=== PATIENT | female | born 1950 | race Caucasian/White ===

== ENCOUNTER 2017-10-25 18:41 | Emergency (ER) | payer OTHER, MEDICARE ==
[~2017-10-25 18:41] MED LIST: ACYCLOVIR800 MG PO; ARTIFICIAL TEAR15 M2 OS; ATORVASTATIN CA10 M1 PO; CARDIZEM CD240 M1 PO; CARTIA XT120 M1 PO; ENDOCET 10-3251 EACH PO; ENDOCET 325 MG-1 TA1 PO; HYDROCODONE/ACE1 TA1 PO; LAMOTRIGINE25 M3 PO; LOSARTAN-HCTZ1 EAC1 PO; MULTI-DAY PLUS1 EAC1 PO; NEURONTIN300 MG PO; NEURONTIN800 M2 PO; PANTOPRAZOLE SO40 M1 PO; PERCOCET 325 MG1 TAB PO; PRADAXA150 M1 PO; PREDNISONE20 M1 PO; PREMARIN0.9 M1 PO; TIROSINT100 MC1 PO; VALTREX1 GM PO; VALTREX1000 MG PO; VITAMIN B-122000 MC1 PO; ZOVIRAX800 MG PO
[2017-10-25] MEDS ORDERED: FLOVENT HFA12 G1 INH (19:19)
[2017-10-25 19:40] VITALS: BP 125/60
[2017-10-25] MEDS ORDERED: PREDNISONE20 M1 PO (19:56)
[2017-10-25] MEDS ORDERED: ULTRAM50 M1 PO (19:56)
[2017-10-25] MEDS ORDERED: VALTREX1000 MG PO (19:56)
--- NOTE | 2017-10-25 19:57 | ED SKIN/ALLERGY COMPLAINT ---
History of Present Illness General Chief Complaint: General Adult Stated Complaint: R SIDED FACIAL DROOP Source: patient, old records Exam Limitations: no limitations Vital Signs & Intake/Output Vital Signs & Intake/Output Vital Signs Date Time Temp Pulse Resp B/P B/P Pulse O2 O2 Flow FiO2 Mean Ox Delivery Rate 10/26 1939 98.2 70 20 125/60 96 Room Air Allergies Coded Allergies: Iodinated Contrast- Oral and IV Dye (ANAPHYLAXIS 11/16/16) aspartame (MIGRAINES 11/16/16) gold Au 198 (BLISTERS, BODY REJECTS ANY IMPLANTS 11/16/16) nickel (BLISTER ON CONTACT, BODY REJECTS ANY IMPLANT 11/16/16) tetracycline (RASH 11/16/16) Uncoded Allergies: METAL (ON SKIN RASH, AND BODY REJECTED SURGICAL STAINLESS STEEL 11/16/16) Reconcile Medications Atorvastatin Calcium 10 MG TABLET 1 TAB PO DAILY TRIGLYCRIDES (Reported) Cyanocobalamin (Vitamin B-12) (Vitamin B-12) 2,000 MCG TABLET 1 TAB PO DAILY SUPPLEMENT (Reported) Dabigatran Etexilate Mesylate (Pradaxa 150 MG) 150 MG CAPSULE 1 CAP PO BID BLOOD THINNER (Reported) Diltiazem HCl (Cardizem Cd) 240 MG CAP.ER.24H 1 CAP PO QAM HEART (Reported) Diltiazem HCl (Cartia Xt) 120 MG CAP.ER.24H 1 CAP PO QPM HEART (Reported) Estrogens, Conjugated (Premarin) 0.9 MG TABLET 1 TAB PO DAILY HRT (Reported) Fluticasone Propionate (Flovent Hfa) 110 MCG/ACTUATION AER.W.ADAP 2 PUF INH BID PRN RESP. (Reported) Gabapentin (Neurontin) 800 MG TABLET 1 TAB PO 4XDAILY PTSD (Reported) Lamotrigine 25 MG TABLET 3 TAB PO BID BIPOLAR (Reported) Levothyroxine Sodium (Tirosint) 100 MCG CAPSULE 1 CAP PO DAILY THYROID ( Reported) Losartan/Hydrochlorothiazide (Losartan-Hctz 50-12.5 MG Tab) 50 MG-12.5 MG TABLET 1 TAB PO DAILY BP (Reported) Multivitamin-Min/Iron/FA/Vit K (Multi-Day Plus Minerals Tablet) 18 MG IRON-400 MCG-25 MCG TABLET 1 TAB PO DAILY SUPPLEMENT (Reported) Pantoprazole Sodium 40 MG TABLET.DR 1 TAB PO DAILY GI (Reported) Prednisone 20 MG TABLET 1 TAB PO BID shingles Tramadol HCl (Ultram) 50 MG TABLET 1 TAB PO Q6P PRN pain Valacyclovir HCl (Valtrex) 1,000 MG TABLET 1 TAB PO TID shingles Triage Note: PT BROUGHT DIRECTLY TO [address] WEI. 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 BOTH MOUTH CHEEK AND EYE BROW ARE NOT REACTIVE. PT HAS A HX OF SHINGLES TO RIGHT SIDE OF FACE FOR 2 WEEKS AND HAS BEEN ON VALTRAX. PT DENIES PAIN. DENIES CHEST PAIN OR SOB. SHE IS ALERT AND ORIENTED AND ALL OTHER NEUROS ARE INTACT Triage Nurses Notes Reviewed? yes Onset: yesterday Duration: day(s):, constant, continues in ED, getting worse Timing: recent history Severity: moderate Location: face Possible Factors: exposure to illness Associated Symptoms: blisters, change in skin texture, numbness, rash LMP (ages 10-50): post menopausal : No Patient currently breastfeeds: No HPI: 2 weeks prior to admission patient reports being treated for shingles with Valtrex. 1 day prior to admission patient noted pain to right side of her face she then developed rash to the area similar to previous episodes of shingles. She denies fever chills nausea vomiting diarrhea abdominal pain chest pain shortness breath headache dysuria bleeding. Review of CT COMPUTER TECH patient has multiple providers of narcotics in varying areas [place] the state. Past History Travel History Traveled to [place] past 21 day No Medical History Any Pertinent Medical History? see below for history Neurological: Chawla's palsy EENT: NONE Cardiovascular: NONE Respiratory: NONE Gastrointestinal: NONE Hepatic: NONE Renal: NONE Musculoskeletal: ARTHRITIS Psychiatric: NONE Endocrine: NONE Blood Disorders: NONE Cancer(s): NONE TRAFFIC CONTROL TECHNICIAN/Reproductive: NONE Surgical History Surgical History: non-contributory Psychosocial History What is your primary language Guatemalan Tobacco Use: Never used Family History Hx Contributory? No Review of Systems Review of Systems Constitutional: Reports: no symptoms. EENTM: Reports: no symptoms. Respiratory: Reports: no symptoms. Cardiovascular: Reports: no symptoms. GI: Reports: no symptoms. Genitourinary: Reports: no symptoms. Musculoskeletal: Reports: no symptoms. Skin: Reports: see HPI, rash. Neurological/Psychological: Reports: see HPI, numbness, tingling, weakness. Hematologic/Endocrine: Reports: no symptoms. Immunologic/Allergic: Reports: no symptoms. All Other Systems: Reviewed and Negative Physical Exam Physical Exam General Appearance: well developed/nourished, alert, awake, anxious, mild distress, obese Head: atraumatic, R Facial droopwith vesicular rash over malar area Eyes: Bilateral: normal appearance, PERRL, EOMI. Ears, Nose, Throat: normal pharynx, normal ENT inspection, hearing grossly normal Neck: normal inspection, supple, full range of motion, no midline tenderness Respiratory: normal breath sounds, chest non-tender, no respiratory distress, quiet respiration, lungs clear Cardiovascular: regular rate/rhythm, normal peripheral pulses, norml femoral pulses equa Peripheral Pulses: 4+ carotid (R), 4+ carotid (L) Gastrointestinal: normal bowel sounds, soft, non-tender, no organomegaly Back: normal inspection, normal range of motion, no vertebral tenderness Extremities: normal inspection, normal capillary refill, normal range of motion, no edema, no ligament instability Neurologic/Psych: awake, alert, oriented x 3, normal mood/affect, facial droop ( right) Reflexes: 2+: bicep (R), bicep (L). Skin: normal color, rash Skin Problem Location: face (R malar area) Skin Problem Character: erythema, patchy, vesicular Lymphatic: no anterior cervical ana maria Progress Differential Diagnosis: allergic reaction, contact dermatitis, lyme disease, shingles Plan of Care: valtex prednisone Departure Departure Time of Disposition: 1953 Disposition: HOME OR SELF CARE Condition: Stable Clinical Impression Primary Impression: Herpes zoster Secondary Impressions: Chawla's palsy, Drug-seeking behavior Referrals: Patient Has No Primary Care Dr (PCP/Family) Departure Forms: Customer Survey General Discharge Information Prescriptions: Current Visit Scripts Valacyclovir HCl (Valtrex) 1 TAB PO TID #30 TAB Prednisone 1 TAB PO BID #10 TAB Tramadol HCl (Ultram) 1 TAB PO Q6P PRN pain #15 TAB
== END 2017-10-25 20:18 ==
LOC: ERH 18:41
DX: B02.9 Zoster without complications (principal); G51.0 Bell's palsy; Z76.5 Malingerer [conscious simulation]